=== PATIENT | male | born 1975 | race Caucasian/White ===

== ENCOUNTER 2018-02-06 20:06 | Emergency (ER) | payer BC ==
[~2018-02-06] VITALS: Ht 185.4 cm; Wt 99.8 kg
[~2018-02-06 20:06] MED LIST: AMLODIPINE BESY10 MG PO; AMOX-CLAV PO; GABAPENTIN100 MG PO
[2018-02-06] MEDS ORDERED: DEXAMETHASONE SOD PHOS 10 MG/1 ML VIAL IM ONE (20:30)
[2018-02-06] MEDS ORDERED: CLONIDINE HCL 0.1 MG TAB PO ONE (20:30)
[2018-02-06] MEDS ORDERED: HYDROCODONE/APAP 10MG-325MG TAB PO ONE (20:30)
[2018-02-06] MEDS ORDERED: KETOROLAC TROMETHAMINE 60 MG/2 ML VIAL IM ONE (20:30)
[2018-02-06] MEDS ORDERED: CYCLOBENZAPRINE HCL 10 MG TAB PO ONE (20:30)
[2018-02-06 21:08] VITALS: BP 147/106
--- NOTE | 2018-02-06 21:23 | Diagnostic Imaging Report ---
CHEST 2 VIEWS, Technique: CHEST 2 VIEWS Comparison: None Clinical history: Back pain DISCUSSION: Normal cardiomediastinal silhouette. No consolidation or edema. No effusion or pneumothorax. IMPRESSION: No acute abnormality Signed by: Dr Orly Recio MD on 02/06/2018 9:20 PM
== END 2018-02-06 21:09 | disposition home or self-care (01) ==
LOC: ER 20:06
DX: M54.6 Pain in thoracic spine (principal); M54.5 Low back pain; R07.89 Other chest pain; I10 Essential (primary) hypertension
CPT/HCPCS: 71046; 99283; J1100; J1885